=== PATIENT | female | born 1950 | race Caucasian/White ===

== ENCOUNTER 2017-07-12 01:21 | Inpatient (IN) | payer MEDICARE, OTHER ==
[~2017-07-12] VITALS: Ht 165.1 cm; Wt 139.7 kg
[2017-07-12] MEDS ORDERED: ONDANSETRON HCL/PF 4 MG/2 ML VIAL ONE (01:48)
[2017-07-12] MEDS ORDERED: HYDROMORPHONE INJ 2 MG/ML DISP.SYRIN ONE ×2 (01:48→04:31)
[2017-07-12] MEDS ORDERED: ONDANSETRON HCL/PF 4 MG/2 ML VIAL IVP ONE (02:00)
[2017-07-12] MEDS ORDERED: IV NS 0.9% 500 ML BAG IV ONE ×2 (02:00→03:30)
[2017-07-12] MEDS ORDERED: HYDROMORPHONE INJ 2 MG/ML DISP.SYRIN IV ONE (02:00)
[2017-07-12 03:01] LABS: BASOPHILS # (AUTO) 0.2 /CMM (0.0-0.2); BASOPHILS % (AUTO) 1.5 % (0.0-2.0); EOSINOPHILS # (AUTO) 0.1 /CMM (0.0-0.7); EOSINOPHILS % (AUTO) 1.1 % (0.0-6.0); HEMATOCRIT 37 % (33-45); HEMOGLOBIN 12.4 g/dL (11.5-14.8); LYMPHOCYTES # (AUTO) 2.2 /CMM (0.8-4.8); LYMPHOCYTES % (AUTO) 20.7 % (20.0-44.0); MEAN CORPUSCULAR HEMOGLOBIN 30 PG (26.0-33.0); MEAN CORPUSCULAR HGB CONC 33 g/dl (31.0-36.0); MEAN CORPUSCULAR VOLUME 92 fL (82-100); MONOCYTES # (AUTO) 0.6 /CMM (0.1-1.30); MONOCYTES % (AUTO) 5.8 % (2.0-12.0); NEUTROPHILS # (AUTO) 7.5 /CMM (1.8-8.9); NEUTROPHILS % (AUTO) 70.9 % (43.0-81.0); PLATELET COUNT (AUTO) 244 /CMM (150-450); RDW COEFFICIENT OF VARIATION 15.1 (11.5-15.0); RED BLOOD CELL COUNT(AUTO) 4.08 MIL/uL (4.0-5.2); WHITE BLOOD COUNT (AUTO) 10.6 K/uL (4.3-11.0)
[2017-07-12] MEDS ORDERED: VALS40TA4 PO (03:04)
[2017-07-12] MEDS ORDERED: APIX2.5T PO (03:04)
[2017-07-12] MEDS ORDERED: CARV3.12 PO (03:04)
[2017-07-12 03:14] LABS: INR 1.13 (0.87-1.13)
[2017-07-12 03:19] LABS: TROPONIN I < 0.017 ng/mL (0.00-0.056)
[2017-07-12 03:21] LABS: CALCIUM, SERUM 8.3 mg/dL (8.5-10.1); CARBON DIOXIDE 20 mmol/L (21-32); CHLORIDE 100 mmol/L (98-107); CREATININE 1.1 mg/dL (0.6-1.3); GLUCOSE 112 mg/dL (74-106); POTASSIUM 5.9 mmol/L (3.5-5.1); SODIUM SERUM 130 mmol/L (136-145); UREA NITROGEN, BLOOD 20 mg/dL (7-18)
[2017-07-12 03:26] LABS: ALANINE AMINOTRANSFERASE 26 U/L (12-78); ALKALINE PHOSPHATASE 75 U/L (46-116); ASPARTATE AMINOTRANSFERASE 49 U/L (15-37); BILIRUBIN,DIRECT 0.1 mg/dL (0.0-0.2); BILIRUBIN,TOTAL 0.9 mg/dL (0.2-1.0); LIPASE 81 U/L (73-393); TOTAL PROTEIN, SERUM 6.7 g/dL (6.4-8.2)
[2017-07-12 04:04] LABS: APPEARANCE,URINE CLEAR (CLEAR); BILIRUBIN,URINE NEGATIVE (NEGATIVE); BLOOD, URINE NEGATIVE Ery/uL (NEGATIVE); COLOR,URINE YELLOW (YELLOW); KETONES,URINE NEGATIVE (NEGATIVE); LEUKOCYTE ESTERASE ,URINE NEGATIVE (NEGATIVE); NITRITE, URINE NEGATIVE (NEGATIVE); PROTEIN,URINE NEGATIVE (NEGATIVE); UGLUCOSE NEGATIVE (NEGATIVE); UROBILINOGEN,URINE 0.2 EU/dL (0.2)
[2017-07-12] MEDS ORDERED: HYDROMORPHONE 1 MG/1 ML DISP.SYRIN IV ONE (04:30)
[2017-07-12] MEDS ORDERED: METOPROLOL TARTRATE INJ 5 MG/5 ML AMPUL IV ONE (05:00)
[2017-07-12] MEDS ORDERED: METOPROLOL TARTRATE INJ 5 MG/5 ML AMPUL ONE (05:01)
[2017-07-12] MEDS ORDERED: ONDANSETRON HCL/PF 4 MG/2 ML VIAL IVP PRN (05:30)
[2017-07-12] MEDS ORDERED: ACETAMINOPHEN 325 MG TABLET PO PRN (05:30)
[2017-07-12] MEDS ORDERED: MAG HYDROX/AL HYDROX/SIMETH 30 ML UDC PO PRN (05:30)
[2017-07-12] MEDS ORDERED: MAGNESIUM HYDROXIDE 30 ML UDC PO PRN (05:30)
[2017-07-12] MEDS ORDERED: Z GUARD REMEDY 2 OZ OINT TP PRN (05:30)
[2017-07-12 05:31] LABS: CALCIUM, SERUM 8.2 mg/dL (8.5-10.1); POTASSIUM 4.6 mmol/L (3.5-5.1)
[2017-07-12] MEDS ORDERED: DILTIAZEM HCL 50 MG IV IV PRN (06:00)
[2017-07-12 08:00] VITALS: BP 120/66
[2017-07-12] MEDS ORDERED: CARVEDILOL 3.125 MG TABLET PO SCH (11:30)
[2017-07-12 12:00] VITALS: BP_SYST 110; BP_SYST 120; BP_DIAS 83; BP_DIAS 86
[2017-07-12] MEDS ORDERED: APIXABAN 2.5 MG TABLET PO ONE (12:00)
[2017-07-12] MEDS: HYDROCODONE/APAP 5/325MG 1 EACH TABLET PO PRN (12:45)
[2017-07-12] MEDS ORDERED: IV NS 0.9% 1,000 ML BAG IV PRN (13:00)
[2017-07-12] MEDS ORDERED: IV NS 0.9% 1,000 ML IV PRN (13:30)
[2017-07-12] MEDS ORDERED: LAMO100T PO (13:48)
[2017-07-12] MEDS ORDERED: OLAN15TA3 PO (13:48)
[2017-07-12] MEDS ORDERED: FLUO20CA36 PO (13:48)
[2017-07-12] MEDS ORDERED: IBUP-1957 PO (13:48)
[2017-07-12] MEDS ORDERED: TEMA15CA PO (13:48)
[2017-07-12] MEDS ORDERED: BUSP15TA3 PO (13:48)
[2017-07-12] MEDS ORDERED: HYDR-552 PO (13:48)
[2017-07-12 16:00] VITALS: BP 110/86
[2017-07-12] MEDS: APIXABAN 2.5 MG TABLET PO SCH (17:47)
[2017-07-12 20:00] VITALS: BP 116/92
[2017-07-12 20:02] VITALS: BP 116/92
[2017-07-13] VITALS: BP 110/78
[2017-07-13] MEDS: DILTIAZEM HCL 25 MG IV IV PRN (00:25)
[2017-07-13] MEDS: HYDROCODONE/APAP 5/325MG 1 EACH TABLET PO PRN ×2 (03:21→15:03)
[2017-07-13 04:00] VITALS: BP 155/90
[2017-07-13] MEDS ORDERED: IBUPROFEN 800 MG TABLET PO SCH (07:30)
[2017-07-13] MEDS ORDERED: TEMAZEPAM 15 MG CAPSULE PO PRN (07:30)
[2017-07-13] MEDS ORDERED: HYDROCODONE/APAP 5/325MG 1 EACH TABLET PO PRN (07:30)
[2017-07-13 08:00] VITALS: BP 140/86
[2017-07-13 08:04] LABS: BASOPHILS % (AUTO) 0.3 % (0.0-2.0); EOSINOPHILS # (AUTO) 0.1 /CMM (0.0-0.7); EOSINOPHILS % (AUTO) 1.5 % (0.0-6.0); HEMATOCRIT 38 % (33-45); HEMOGLOBIN 12.7 g/dL (11.5-14.8); LYMPHOCYTES # (AUTO) 2.1 /CMM (0.8-4.8); LYMPHOCYTES % (AUTO) 24.9 % (20.0-44.0); MEAN CORPUSCULAR HEMOGLOBIN 31 PG (26.0-33.0); MEAN CORPUSCULAR HGB CONC 34 g/dl (31.0-36.0); MEAN CORPUSCULAR VOLUME 93 fL (82-100); MONOCYTES # (AUTO) 0.5 /CMM (0.1-1.30); MONOCYTES % (AUTO) 6.2 % (2.0-12.0); NEUTROPHILS # (AUTO) 5.7 /CMM (1.8-8.9); NEUTROPHILS % (AUTO) 67.1 % (43.0-81.0); PLATELET COUNT (AUTO) 206 /CMM (150-450); RDW COEFFICIENT OF VARIATION 15.1 (11.5-15.0); RED BLOOD CELL COUNT(AUTO) 4.04 MIL/uL (4.0-5.2); WHITE BLOOD COUNT (AUTO) 8.5 K/uL (4.3-11.0)
[2017-07-13 08:18] LABS: CALCIUM, SERUM 8.5 mg/dL (8.5-10.1); CREATININE 0.9 mg/dL (0.6-1.3); MAGNESIUM 1.7 mg/dL (1.8-2.4); POTASSIUM 4.8 mmol/L (3.5-5.1)
[2017-07-13] MEDS: Magnesium 1GM/D5W 100ML PREMIX 100 ML IV SCH ×2 (08:49→10:00)
[2017-07-13] MEDS: FLUOXETINE HCL 20 MG CAPSULE PO SCH (08:49)
[2017-07-13] MEDS: CARVEDILOL 12.5 MG TABLET PO SCH ×2 (08:49→17:36)
[2017-07-13] MEDS: APIXABAN 2.5 MG TABLET PO SCH ×2 (08:50→17:34)
[2017-07-13] MEDS ORDERED: CARVEDILOL 3.125 MG TABLET PO SCH (09:00)
[2017-07-13 09:54] LABS: THYROID STIMULATING HORMONE 1.013 uIU/mL (0.358-3.74)
[2017-07-13] MEDS: busPIRone 5 MG TABLET PO SCH ×3 (15:05→20:57)
[2017-07-13 16:00] VITALS: BP_SYST 108; BP_SYST 138; BP_DIAS 62; BP_DIAS 91
[2017-07-13 20:23] VITALS: BP 115/65
[2017-07-13 20:27] VITALS: BP 115/65
[2017-07-13] MEDS ORDERED: HYDROMORPHONE 1 MG/1 ML DISP.SYRIN IV PRN (20:30)
[2017-07-13] MEDS: LamoTRIgine 100 MG TABLET PO SCH (21:53)
[2017-07-13] MEDS: OLANZAPINE 5 MG TABLET PO SCH (21:54)
[2017-07-13] MEDS: HYDROMORPHONE INJ 2 MG/ML DISP.SYRIN IV PRN (21:55)
[2017-07-14 07:00] LABS: BASOPHILS % (AUTO) 0.4 % (0.0-2.0); EOSINOPHILS # (AUTO) 0.1 /CMM (0.0-0.7); EOSINOPHILS % (AUTO) 1.8 % (0.0-6.0); HEMATOCRIT 37 % (33-45); HEMOGLOBIN 12.4 g/dL (11.5-14.8); LYMPHOCYTES # (AUTO) 2.1 /CMM (0.8-4.8); LYMPHOCYTES % (AUTO) 27.5 % (20.0-44.0); MEAN CORPUSCULAR HEMOGLOBIN 31 PG (26.0-33.0); MEAN CORPUSCULAR HGB CONC 34 g/dl (31.0-36.0); MEAN CORPUSCULAR VOLUME 93 fL (82-100); MONOCYTES # (AUTO) 0.5 /CMM (0.1-1.30); MONOCYTES % (AUTO) 7.2 % (2.0-12.0); NEUTROPHILS # (AUTO) 4.7 /CMM (1.8-8.9); NEUTROPHILS % (AUTO) 63.1 % (43.0-81.0); PLATELET COUNT (AUTO) 205 /CMM (150-450); RDW COEFFICIENT OF VARIATION 14.8 (11.5-15.0); RED BLOOD CELL COUNT(AUTO) 3.95 MIL/uL (4.0-5.2); WHITE BLOOD COUNT (AUTO) 7.4 K/uL (4.3-11.0)
[2017-07-14 07:19] LABS: ALBUMIN 2.7 g/dL (3.4-5.0); BILIRUBIN,TOTAL 0.5 mg/dL (0.2-1.0); CALCIUM, SERUM 8.7 mg/dL (8.5-10.1); CREATININE 0.8 mg/dL (0.6-1.3); MAGNESIUM 1.7 mg/dL (1.8-2.4); PHOSPHORUS 3.1 mg/dL (2.5-4.9); POTASSIUM 4.4 mmol/L (3.5-5.1)
[2017-07-14 08:00] VITALS: BP 108/70
[2017-07-14] MEDS ORDERED: HYDROCODONE/APAP 10/325MG 1 EA TABLET PO PRN (09:00)
[2017-07-14] MEDS ORDERED: CARVEDILOL 12.5 MG TABLET PO SCH (09:00)
[2017-07-14] MEDS: FLUOXETINE HCL 20 MG CAPSULE PO SCH (09:21)
[2017-07-14] MEDS: APIXABAN 2.5 MG TABLET PO SCH ×2 (09:21→16:24)
[2017-07-14] MEDS: busPIRone 5 MG TABLET PO SCH ×4 (09:21→22:11)
[2017-07-14] MEDS: KETOROLAC TROMETHAMINE INJ 30 MG/ML VIAL IM SCH ×2 (11:36→19:08)
[2017-07-14] MEDS: Magnesium 1GM/D5W 100ML PREMIX 100 ML IV SCH ×2 (11:53→12:54)
[2017-07-14 12:00] VITALS: BP 147/90
[2017-07-14] MEDS: OLANZAPINE 2.5 MG TABLET PO SCH (12:07)
[2017-07-14 16:00] VITALS: BP 143/89
[2017-07-14] MEDS: CARVEDILOL 12.5 MG TABLET PO SCH ×2 (16:25→16:33)
[2017-07-14] MEDS: SOD FERRIC GLUC 125 MG in IV NS 0.9% 100 ML IV SCH (16:27)
[2017-07-14 20:00] VITALS: BP 117/70
[2017-07-14] MEDS: OLANZAPINE 5 MG TABLET PO SCH (22:11)
[2017-07-14] MEDS: LamoTRIgine 100 MG TABLET PO SCH (22:11)
[2017-07-15 04:00] VITALS: BP 113/59
[2017-07-15] MEDS: KETOROLAC TROMETHAMINE INJ 30 MG/ML VIAL IM SCH ×5 (05:13→23:27)
[2017-07-15 06:58] LABS: BASOPHILS % (AUTO) 0.3 % (0.0-2.0); EOSINOPHILS # (AUTO) 0.1 /CMM (0.0-0.7); EOSINOPHILS % (AUTO) 1.9 % (0.0-6.0); HEMATOCRIT 39 % (33-45); HEMOGLOBIN 13.1 g/dL (11.5-14.8); LYMPHOCYTES # (AUTO) 1.3 /CMM (0.8-4.8); LYMPHOCYTES % (AUTO) 19.1 % (20.0-44.0); MEAN CORPUSCULAR HEMOGLOBIN 31 PG (26.0-33.0); MEAN CORPUSCULAR HGB CONC 33 g/dl (31.0-36.0); MEAN CORPUSCULAR VOLUME 93 fL (82-100); MONOCYTES # (AUTO) 0.4 /CMM (0.1-1.30); MONOCYTES % (AUTO) 6.1 % (2.0-12.0); NEUTROPHILS # (AUTO) 5.1 /CMM (1.8-8.9); NEUTROPHILS % (AUTO) 72.6 % (43.0-81.0); PLATELET COUNT (AUTO) 195 /CMM (150-450); RDW COEFFICIENT OF VARIATION 14.5 (11.5-15.0); RED BLOOD CELL COUNT(AUTO) 4.22 MIL/uL (4.0-5.2)
[2017-07-15 07:04] LABS: CALCIUM, SERUM 8.5 mg/dL (8.5-10.1); CREATININE 0.9 mg/dL (0.6-1.3); MAGNESIUM 1.9 mg/dL (1.8-2.4); PHOSPHORUS 3.2 mg/dL (2.5-4.9); POTASSIUM 4.5 mmol/L (3.5-5.1)
[2017-07-15 08:00] VITALS: BP 145/91
[2017-07-15] MEDS: APIXABAN 2.5 MG TABLET PO SCH ×2 (08:18→19:25)
[2017-07-15] MEDS: OLANZAPINE 2.5 MG TABLET PO SCH ×2 (08:18→12:12)
[2017-07-15] MEDS: FLUOXETINE HCL 20 MG CAPSULE PO SCH (08:18)
[2017-07-15] MEDS: busPIRone 5 MG TABLET PO SCH ×4 (08:18→23:26)
[2017-07-15] MEDS: CARVEDILOL 12.5 MG TABLET PO SCH ×2 (08:30→19:24)
[2017-07-15] MEDS ORDERED: CARVEDILOL 12.5 MG TABLET PO ONE (11:00)
[2017-07-15] MEDS: SOD FERRIC GLUC 125 MG in IV NS 0.9% 100 ML IV SCH (13:39)
[2017-07-15] MEDS: PANTOPRAZOLE 40 MG VIAL IV SCH (14:57)
[2017-07-15 16:00] VITALS: BP 137/89
[2017-07-15 20:00] VITALS: BP 113/75
[2017-07-15] MEDS: LamoTRIgine 100 MG TABLET PO SCH (22:17)
[2017-07-15] MEDS: OLANZAPINE 5 MG TABLET PO SCH (22:18)
[2017-07-15 22:33] LABS: OCCULT BLOOD STOOL NEGATIVE (NEGATIVE)
[2017-07-16] VITALS: BP 123/72
[2017-07-16] MEDS: DILTIAZEM HCL 25 MG IV IV PRN (01:03)
[2017-07-16 04:00] VITALS: BP 135/78
[2017-07-16] MEDS: KETOROLAC TROMETHAMINE INJ 30 MG/ML VIAL IM SCH (05:32)
[2017-07-16 08:00] VITALS: BP 140/100
[2017-07-16] MEDS: CARVEDILOL 12.5 MG TABLET PO SCH ×2 (08:28→17:13)
[2017-07-16] MEDS: OLANZAPINE 2.5 MG TABLET PO SCH ×2 (08:28→12:21)
[2017-07-16] MEDS: APIXABAN 2.5 MG TABLET PO SCH ×2 (08:28→17:13)
[2017-07-16] MEDS: busPIRone 5 MG TABLET PO SCH ×3 (08:28→17:12)
[2017-07-16] MEDS: FLUOXETINE HCL 20 MG CAPSULE PO SCH (08:28)
[2017-07-16 12:00] VITALS: BP 140/80
[2017-07-16] MEDS: HYDROMORPHONE INJ 2 MG/ML DISP.SYRIN IV PRN (12:38)
[2017-07-16] MEDS: DILTIAZEM HCL 30 MG TABLET PO SCH ×2 (13:28→17:13)
[2017-07-16] MEDS: PANTOPRAZOLE 40 MG VIAL IV SCH (14:49)
[2017-07-16] MEDS: SOD FERRIC GLUC 125 MG in IV NS 0.9% 100 ML IV SCH (15:07)
[2017-07-16 16:00] VITALS: BP 127/80
[2017-07-16 20:00] VITALS: BP 111/77
== END 2017-07-16 20:25 | disposition home or self-care (01) | DRG 309 ==
LOC: ER 01:27 → TELE 05:37 → MED 07-13 08:55 → TELE 07-15 20:09
PROVIDERS: ADMIT Internal Medicine; ATTEND Internal Medicine
DX: I48.91 Unspecified atrial fibrillation (principal); E44.0 Moderate protein-calorie malnutrition; D68.59 Other primary thrombophilia; E66.01 Morbid (severe) obesity due to excess calories; E87.1 Hypo-osmolality and hyponatremia; E83.42 Hypomagnesemia; Z68.43 Body mass index [BMI] 50.0-59.9, adult; I50.30 Unspecified diastolic (congestive) heart failure; M48.54XA Collapsed vertebra, not elsewhere classified, thoracic region, initial encounter for fracture; E87.5 Hyperkalemia; F31.9 Bipolar disorder, unspecified; F41.9 Anxiety disorder, unspecified; G47.33 Obstructive sleep apnea (adult) (pediatric); H05.20 Unspecified exophthalmos; I27.20 Pulmonary hypertension, unspecified; I48.2 Chronic atrial fibrillation; K80.20 Calculus of gallbladder without cholecystitis without obstruction; E88.09 Other disorders of plasma-protein metabolism, not elsewhere classified; Z87.440 Personal history of urinary (tract) infections; D64.9 Anemia, unspecified; I11.0 Hypertensive heart disease with heart failure; M85.80 Other specified disorders of bone density and structure, unspecified site; K46.9 Unspecified abdominal hernia without obstruction or gangrene
CPT/HCPCS: 36415; 71045-TC; 76705-TC; 78226; 80048-TC; 80053-TC; 80076-TC; 81000-TC; 82272-TC; 82306; 82728-TC; 83540-TC; 83605-TC; 83690-TC; 83735-TC; 84100-TC; 84439-TC; 84443-TC; 84484-TC; 85025-TC; 85730-TC; 87081-TC; 93307-TC; A4606; A9537; C9113; J1170; J1885; J2405; J2916; J3475; J3490; J7030; Z7610

== ENCOUNTER 2017-07-21 22:07 | Inpatient (IN) | payer MEDICARE, OTHER ==
[~2017-07-21] VITALS: Ht 175.3 cm; Wt 136.1 kg
[~2017-07-21 22:07] MED LIST: APIX2.5T PO; BUSP15TA3 PO; CARV3.12 PO; FLUO20CA36 PO; HYDR-552 PO; LAMO100T PO; OLAN15TA3 PO; TEMA15CA PO; VALS40TA4 PO
--- NOTE | 2017-07-21 22:15 | NUR ---
TO BED 12 A 67 YO FEMALE PATIENT [id number] FROM HOME "C/O ABDOMINAL PAIN/ RIGHT FLANK PAIN 01/11 X1 MONTH." PATIENT IS AAOX3, AFEBRILE. NAD NOTED. SKIN WARM AND DRY. PLACED ON TELE MONITOR. GOWNED. COMFORT MEASURES RENDERED.
--- NOTE | 2017-07-21 22:50 | NUR ---
started a saline lock on the left hand g20, blood drawn and sent to lab.
[2017-07-21 23:00] LABS: BASOPHILS # (AUTO) 0.1 /CMM (0.0-0.2); BASOPHILS % (AUTO) 0.7 % (0.0-2.0); EOSINOPHILS % (AUTO) 0.2 % (0.0-6.0); HEMATOCRIT 39 % (33-45); HEMOGLOBIN 12.9 g/dL (11.5-14.8); LYMPHOCYTES # (AUTO) 2.6 /CMM (0.8-4.8); LYMPHOCYTES % (AUTO) 23.5 % (20.0-44.0); MEAN CORPUSCULAR HEMOGLOBIN 31 PG (26.0-33.0); MEAN CORPUSCULAR HGB CONC 34 g/dl (31.0-36.0); MEAN CORPUSCULAR VOLUME 93 fL (82-100); MONOCYTES # (AUTO) 0.5 /CMM (0.1-1.30); MONOCYTES % (AUTO) 4.1 % (2.0-12.0); NEUTROPHILS # (AUTO) 8.1 /CMM (1.8-8.9); NEUTROPHILS % (AUTO) 71.5 % (43.0-81.0); PLATELET COUNT (AUTO) 212 /CMM (150-450); RDW COEFFICIENT OF VARIATION 14.8 (11.5-15.0); RED BLOOD CELL COUNT(AUTO) 4.16 MIL/uL (4.0-5.2); WHITE BLOOD COUNT (AUTO) 11.3 K/uL (4.3-11.0)
--- NOTE | 2017-07-21 23:09 | NUR ---
urine collected via aseptic straight cath, called lab for garbage pick up worker.
[2017-07-21 23:11] LABS: CALCIUM, SERUM 8.5 mg/dL (8.5-10.1); CARBON DIOXIDE 21 mmol/L (21-32); CHLORIDE 99 mmol/L (98-107); CREATININE 0.9 mg/dL (0.6-1.3); GLUCOSE 118 mg/dL (74-106); POTASSIUM 4.2 mmol/L (3.5-5.1); SODIUM SERUM 134 mmol/L (136-145); UREA NITROGEN, BLOOD 13 mg/dL (7-18)
[2017-07-21] MEDS ORDERED: DILTIAZEM HCL 25 MG IV ONE (23:12)
[2017-07-21 23:15] LABS: INR 1.33 (0.87-1.13)
[2017-07-21 23:16] LABS: ALANINE AMINOTRANSFERASE 30 U/L (12-78); ALBUMIN 3.1 g/dL (3.4-5.0); ALKALINE PHOSPHATASE 81 U/L (46-116); ASPARTATE AMINOTRANSFERASE 43 U/L (15-37); BILIRUBIN,DIRECT 0.2 mg/dL (0.0-0.2); BILIRUBIN,TOTAL 0.7 mg/dL (0.2-1.0); LIPASE 69 U/L (73-393); TOTAL PROTEIN, SERUM 6.4 g/dL (6.4-8.2)
--- NOTE | 2017-07-21 23:17 | NUR ---
Maite Shaikh as bedside.
[2017-07-21 23:19] LABS: TROPONIN I < 0.017 ng/mL (0.00-0.056)
[2017-07-21] MEDS ORDERED: DILTIAZEM HCL IV 125 MG in IV NS 0.9% 100 ML IV PRN (23:30)
[2017-07-21] MEDS ORDERED: DILTIAZEM HCL 50 MG IV IV ONE (23:30)
[2017-07-21 23:33] LABS: APPEARANCE,URINE CLOUDY (CLEAR); BILIRUBIN,URINE 2+ (NEGATIVE); BLOOD, URINE 3+ Ery/uL (NEGATIVE); COLOR,URINE AMBER (YELLOW); KETONES,URINE TRACE (NEGATIVE); LEUKOCYTE ESTERASE ,URINE 3+ (NEGATIVE); NITRITE, URINE NEGATIVE (NEGATIVE); PROTEIN,URINE 2+ mg/dl (NEGATIVE); UGLUCOSE NEGATIVE (NEGATIVE)
[2017-07-21 23:39] LABS: BACTERIA,URINE Moderate /HPF (None Seen); RBC,URINE TOO NUMEROUS TO COUN /HPF (0-2); SQUAMOUS EPITHELIAL CELL,UR Few /HPF (None Seen); WBC,URINE TOO NUMEROUS TO COUN /HPF (0-3)
[2017-07-21] MEDS ORDERED: CEFTRIAXONE 1GM BAG (ER ONLY) 50 ML IV ONE (23:59)
[2017-07-22] VITALS (7 sets, daily range): BP systolic 92–141; BP diastolic 54–93
[2017-07-22] MEDS ORDERED: CEFTRIAXONE 1GM BAG (ER ONLY) 1 GM/50 ML PIGGYBACK IV ONE
--- NOTE | 2017-07-22 | NUR ---
STARTED ON CARDIZEM DRIP AT 5MG/HR FOR AFIB RVR. CLOSE TELE MONITORING ONGOING. PATIENT DENIES CP/ SOB AT THIS TIME.
--- NOTE | 2017-07-22 00:15 | NUR ---
Report given to Ema ELLIS for admission and clare.
[2017-07-22] MEDS ORDERED: ACETAMINOPHEN 325 MG TABLET PO PRN (00:30)
[2017-07-22] MEDS ORDERED: MAGNESIUM HYDROXIDE 30 ML UDC PO PRN (00:30)
[2017-07-22] MEDS ORDERED: MORPHINE SULFATE INJ 2 MG/ML DISP.SYRIN IV PRN (00:30)
[2017-07-22] MEDS ORDERED: TEMAZEPAM 15 MG CAPSULE PO PRN (00:30)
[2017-07-22] MEDS ORDERED: ONDANSETRON HCL/PF 4 MG/2 ML VIAL IVP PRN (00:30)
[2017-07-22] MEDS ORDERED: MAG HYDROX/AL HYDROX/SIMETH 30 ML UDC PO PRN (00:30)
[2017-07-22] MEDS: HYDROCODONE/APAP 5/325MG 1 EACH TABLET PO PRN ×4 (01:10→21:27)
--- NOTE | 2017-07-22 06:20 | NUR ---
RN HELDER CLOSING NOTE NO ACUTE CHANGES, PATIENT IS RESTING COMFORTABLY IN BED, CONTINUES ON CARDIAZEM IV AT 5CC/HR. NO CARDIAC DISTRESS REPORTED OR NOTED. SAFETY MAINTAINED AT ALL TIMES. BED IN LOW AND LOCKED POSITION. WILL ENDORSE TO RN FOR CONTINUITY OF CARE.
[2017-07-22] MEDS: PANTOPRAZOLE 40 MG TABLET.DR PO SCH (07:30)
--- NOTE | 2017-07-22 07:46 | NUR ---
RN HELDER NOTE PATIENT IN DAY SURGERY LEFT BEFORE REPORT GIVEN ON PATIENT. AWAITING RETURN WILL ASSESS PATIENT UPON RETURN TO UNIT.
[2017-07-22 08:08] LABS: MAGNESIUM 1.4 mg/dL (1.8-2.4); PHOSPHORUS 3.6 mg/dL (2.5-4.9)
[2017-07-22] MEDS ORDERED: VALSARTAN 40 MG TABLET PO SCH ×3 (09:00)
[2017-07-22] MEDS ORDERED: CARVEDILOL 25 MG TABLET PO SCH (09:00)
[2017-07-22] MEDS ORDERED: CARVEDILOL 3.125 MG TABLET PO SCH ×2 (09:00)
[2017-07-22] MEDS ORDERED: APIXABAN 2.5 MG TABLET PO SCH ×2 (09:00→17:00)
[2017-07-22] MEDS ORDERED: CEFTRIAXONE 1 G in IV NS 0.9% 50 ML IV SCH ×2 (09:00→23:00)
[2017-07-22] MEDS: FLUOXETINE HCL 20 MG CAPSULE PO SCH (09:59)
[2017-07-22] MEDS: busPIRone 5 MG TABLET PO SCH ×4 (10:00→21:20)
[2017-07-22] MEDS: CARVEDILOL 12.5 MG TABLET PO SCH ×2 (10:00→21:00)
--- NOTE | 2017-07-22 10:36 | NUR ---
WOUND CARE CONSULT: PT PRESENTS WITH MULTIPLE SCABS AND SCARS FROM PICKING AT HER SKIN. PT ALSO NOTED TO HAVE BILATERAL FOOT/ANKLE DRY ABRASIONS FROM FALL AT HOME PER PT. PT IS INCONTINENT OF URINE. PT ABLE TO ASSIST WITH TURNING AND REPOSITIONING IN BED. PT ON SUHA ISOFLEX LOW AIRLOSS BED. ALL SKIN PROTECTION MEASURES IN PLACE AND DISCUSSED WITH NURSING STAFF. WILL SEE PRN. CURRENT VANDA SCORE IS 13. Addendum: 07/22/17 at 1040 by HARLAN BAILEY WNDNU Amended: Links added.
[2017-07-22] MEDS ORDERED: Z GUARD REMEDY 2 OZ OINT TP PRN (11:00)
[2017-07-22] MEDS: Magnesium 1GM/D5W 100ML PREMIX 100 ML IV SCH ×4 (12:14→17:56)
[2017-07-22] MEDS: DILTIAZEM HCL CD 240 MG PO SCH (13:57)
[2017-07-22 14:25] LABS: BASOPHILS # (AUTO) 0.1 /CMM (0.0-0.2); BASOPHILS % (AUTO) 0.6 % (0.0-2.0); EOSINOPHILS % (AUTO) 0.3 % (0.0-6.0); HEMATOCRIT 37 % (33-45); HEMOGLOBIN 12.1 g/dL (11.5-14.8); LYMPHOCYTES # (AUTO) 2.7 /CMM (0.8-4.8); LYMPHOCYTES % (AUTO) 32.6 % (20.0-44.0); MEAN CORPUSCULAR HEMOGLOBIN 31 PG (26.0-33.0); MEAN CORPUSCULAR HGB CONC 33 g/dl (31.0-36.0); MEAN CORPUSCULAR VOLUME 93 fL (82-100); MONOCYTES # (AUTO) 0.5 /CMM (0.1-1.30); MONOCYTES % (AUTO) 5.6 % (2.0-12.0); NEUTROPHILS # (AUTO) 5.1 /CMM (1.8-8.9); NEUTROPHILS % (AUTO) 60.9 % (43.0-81.0); PLATELET COUNT (AUTO) 173 /CMM (150-450); RDW COEFFICIENT OF VARIATION 15.3 (11.5-15.0); RED BLOOD CELL COUNT(AUTO) 3.92 MIL/uL (4.0-5.2); WHITE BLOOD COUNT (AUTO) 8.4 K/uL (4.3-11.0)
[2017-07-22 14:35] LABS: BILIRUBIN,TOTAL 0.5 mg/dL (0.2-1.0); CALCIUM, SERUM 8.4 mg/dL (8.5-10.1); POTASSIUM 4.4 mmol/L (3.5-5.1); TOTAL PROTEIN, SERUM 5.9 g/dL (6.4-8.2)
[2017-07-22] MEDS: APIXABAN 5 MG TABLET PO SCH (16:21)
[2017-07-22] MEDS: Z GUARD REMEDY 2 OZ OINT TP SCH (16:23)
[2017-07-22] MEDS ORDERED: MENTHOL/CETYLPYRD (CEPACOL) 1 LOZ LOZENGE PO PRN (19:00)
--- NOTE | 2017-07-22 19:30 | NUR ---
RETAIL LOSS PREVENTION SPECIALIST NOTE RECEIVED PATIENT RESTING COMFORTABLY IN BED WITH HOB ELEVATED, AOX3, SPEECH CLEAR, ABLE TO MAKE NEEDS KNOWN, ON 2L O2 VIA NC, TELE READING AFIB 82, L HAND #20G PATENT, FLUSHING, SITE CDI, FLUSHES WELL. NO CARDIAC OR RESPIRATORY DISTRESS NOTED. SAFETY MAINTAINED AT ALL TIMES, BED IN LOW LOCKED POSITION, WILL CONTINUE TO MONITOR FOR ANY CHANGES IN CONDITION.
[2017-07-22] MEDS: GUAIFENESIN/D-METHORPHAN HB 5 ML UDC PO PRN (19:43)
[2017-07-22] MEDS ORDERED: OLANZAPINE 10 MG TABLET PO SCH (22:00)
[2017-07-22] MEDS ORDERED: LamoTRIgine 100 MG TABLET PO SCH (22:00)
[2017-07-23] VITALS: BP 106/62
[2017-07-23 04:00] VITALS: BP 119/86
--- NOTE | 2017-07-23 06:27 | NUR ---
CRISIS INTERVENTION SPECIALIST CLOSING NOTE NO ACUTE CHANGES DURING SHIFT, TELE CONTROLLED AFIB 82. SAFETY MAINTAINED AT ALL TIMES WILL ENDORSE. WILL ENDORSE TO AM NURSE FOR CONTINUITY OF CARE.
--- NOTE | 2017-07-23 07:27 | NUR ---
RN NOTES RECEIVED PT FROM FINANCIAL ANALYSIS CONSULTANT, A&0X3, ON2L NC SATING WELL NO SOB OR DISTRESS NOTED. A FIB ON THE TELE SWETA HR 75. LH 20G IV SITE INTACT NO IVF. BED LOCKED AND IN LOWEST POSITION, CALL LIGHT WITHIN REACH, SIDE RAILS UPX3, WILL CONT TO SWETA.
[2017-07-23 08:00] VITALS: BP 127/80
[2017-07-23 08:05] LABS: BASOPHILS % (AUTO) 0.2 % (0.0-2.0); EOSINOPHILS # (AUTO) 0.1 /CMM (0.0-0.7); EOSINOPHILS % (AUTO) 0.9 % (0.0-6.0); HEMATOCRIT 37 % (33-45); HEMOGLOBIN 12.3 g/dL (11.5-14.8); LYMPHOCYTES # (AUTO) 1.9 /CMM (0.8-4.8); LYMPHOCYTES % (AUTO) 19.4 % (20.0-44.0); MEAN CORPUSCULAR HEMOGLOBIN 31 PG (26.0-33.0); MEAN CORPUSCULAR HGB CONC 33 g/dl (31.0-36.0); MEAN CORPUSCULAR VOLUME 94 fL (82-100); MONOCYTES # (AUTO) 0.5 /CMM (0.1-1.30); MONOCYTES % (AUTO) 4.9 % (2.0-12.0); NEUTROPHILS # (AUTO) 7.3 /CMM (1.8-8.9); NEUTROPHILS % (AUTO) 74.6 % (43.0-81.0); PLATELET COUNT (AUTO) 168 /CMM (150-450); RDW COEFFICIENT OF VARIATION 15.1 (11.5-15.0); RED BLOOD CELL COUNT(AUTO) 3.98 MIL/uL (4.0-5.2); WHITE BLOOD COUNT (AUTO) 9.7 K/uL (4.3-11.0)
[2017-07-23 08:15] LABS: CREATININE 0.8 mg/dL (0.6-1.3)
[2017-07-23] MEDS: PANTOPRAZOLE 40 MG TABLET.DR PO SCH (08:35)
[2017-07-23] MEDS: APIXABAN 5 MG TABLET PO SCH (08:35)
[2017-07-23] MEDS: HYDROCODONE/APAP 5/325MG 1 EACH TABLET PO PRN ×2 (08:35→15:30)
[2017-07-23] MEDS: busPIRone 5 MG TABLET PO SCH ×2 (08:36→12:28)
[2017-07-23] MEDS: CARVEDILOL 12.5 MG TABLET PO SCH (08:37)
[2017-07-23] MEDS: DILTIAZEM HCL CD 240 MG PO SCH (08:37)
[2017-07-23] MEDS: Z GUARD REMEDY 2 OZ OINT TP SCH (08:38)
[2017-07-23] MEDS: GUAIFENESIN/D-METHORPHAN HB 5 ML UDC PO PRN (08:40)
[2017-07-23] MEDS: FLUOXETINE HCL 20 MG CAPSULE PO SCH (08:40)
[2017-07-23] MEDS ORDERED: DILT240C64 PO (11:56)
[2017-07-23] MEDS ORDERED: CARV12.52 PO (11:56)
[2017-07-23] MEDS ORDERED: APIX5TAB PO (11:56)
[2017-07-23 12:00] VITALS: BP 131/71
[2017-07-23] MEDS ORDERED: NITR100C PO (12:05)
[2017-07-23] MEDS ORDERED: diphenhydrAMINE HCL/ZINC ACET CREAM 28.3 GM TUBE TP PRN (13:30)
[2017-07-23] MEDS ORDERED: NYSTATIN TOP POWDER 15 GM BOTTLE TP SCH (13:30)
[2017-07-23 16:00] VITALS: BP 146/78
--- NOTE | 2017-07-23 17:26 | NUR ---
RN NOTES PT DISCHARGED IN STABLE CONDITION VIA AMBULANCE.
== END 2017-07-23 17:31 | disposition home or self-care (01) | DRG 309 ==
LOC: ER 22:08 → TELE1 23:19 → TELE-TD 07-22 00:18 → TELE1 07-22 16:07
PROVIDERS: ADMIT Nurse Practitioner Acute Care; ATTEND Nurse Practitioner Acute Care
DX: I48.91 Unspecified atrial fibrillation (principal); E44.0 Moderate protein-calorie malnutrition; I27.20 Pulmonary hypertension, unspecified; E87.1 Hypo-osmolality and hyponatremia; E88.09 Other disorders of plasma-protein metabolism, not elsewhere classified; E66.01 Morbid (severe) obesity due to excess calories; N39.0 Urinary tract infection, site not specified; Z68.41 Body mass index [BMI] 40.0-44.9, adult; I50.9 Heart failure, unspecified; I11.0 Hypertensive heart disease with heart failure; L30.4 Erythema intertrigo; Z79.01 Long term (current) use of anticoagulants; F32.9 Major depressive disorder, single episode, unspecified; Z91.14 Patient's other noncompliance with medication regimen; T14.8XXA Other injury of unspecified body region, initial encounter; X58.XXXA Exposure to other specified factors, initial encounter; Y93.9 Activity, unspecified; Y92.009 Unspecified place in unspecified non-institutional (private) residence as the place of occurrence of the external cause; B96.20 Unspecified Escherichia coli [E. coli] as the cause of diseases classified elsewhere; Z16.12 Extended spectrum beta lactamase (ESBL) resistance
CPT/HCPCS: 36415; 71045-TC; 80048-TC; 80053-TC; 80061-TC; 80076-TC; 81000-TC; 83690-TC; 83735-TC; 84100-TC; 84484-TC; 85025-TC; 85730-TC; 87081-TC; 87086-TC; 87186-TC; 97116-TC; 97530-TC; A4216; A4606; J0696; J3475; J3490; J7030; J7050; Z7610